=== PATIENT | male | born 1985 | race Caucasian/White ===

== ENCOUNTER 2019-11-09 11:25 | Outpatient (REF) | payer BC, SELFPAY ==
[2019-11-09 20:09] LABS: Calculated LDL 179 mg/dL (<100); Cholesterol 271 mg/dL (<200); Glucose 100 mg/dL (74-106); HDL Cholesterol 57 mg/dL (40-60); Triglyceride 178 mg/dL (<150)
== END 2019-11-09 11:45 ==
LOC: NCHCN 11:25
PROVIDERS: PCP Specialist/Technologist Athletic Trainer; Visit Provider Nurse Practitioner Family
DX: F41.1 Generalized anxiety disorder (principal); E78.5 Hyperlipidemia, unspecified; K21.9 Gastro-esophageal reflux disease without esophagitis; F90.9 Attention-deficit hyperactivity disorder, unspecified type
CPT/HCPCS: 80061; 82947

== ENCOUNTER → 2020-06-23 15:48 | Outpatient (REF) | payer BC, SELFPAY ==
[2020-06-23 20:46] LABS: ALT 61 U/L (16-63); AST 23 U/L (15-37); HDL Cholesterol 56 mg/dL (40-60); LDL CHOLESTEROL 82 mg/dL (<100)
[2020-06-23 21:09] LABS: Creatine Kinase 270 U/L (39-308)
== END ==
LOC: NCHCN 15:48
PROVIDERS: PCP Specialist/Technologist Athletic Trainer; Visit Provider Nurse Practitioner Family
DX: E78.5 Hyperlipidemia, unspecified (principal); F41.1 Generalized anxiety disorder; F32.9 Major depressive disorder, single episode, unspecified; K21.9 Gastro-esophageal reflux disease without esophagitis; F90.9 Attention-deficit hyperactivity disorder, unspecified type; R07.9 Chest pain, unspecified
CPT/HCPCS: 82550; 83721; 83718; 84450; 84460

== ENCOUNTER 2022-04-27 18:33 | Outpatient (REF) | payer BC, SELFPAY ==
[2022-04-27 20:07] LABS: ALT 72 U/L (16-63); AST 30 U/L (15-37); HDL Cholesterol 60 mg/dL (40-60); LDL CHOLESTEROL 99 mg/dL (<100)
[2022-04-27 20:20] LABS: Creatine Kinase 207 U/L (39-308)
== END 2022-04-27 18:34 | disposition home or self-care (01) ==
LOC: NCHCN 18:33
PROVIDERS: PCP Specialist/Technologist Athletic Trainer; Visit Provider Nurse Practitioner Family
DX: E78.1 Pure hyperglyceridemia (principal); F90.9 Attention-deficit hyperactivity disorder, unspecified type
CPT/HCPCS: 82550; 83721; 83718; 84450; 84460

== ENCOUNTER 2024-01-19 19:37 | Outpatient (REF) | payer BC, SELFPAY ==
[2024-01-19 20:08] LABS: ALT 70 U/L (16-63); AST 30 U/L (15-37); Albumin 4.3 g/dL (3.4-5.0); Alkaline Phosphatase 53 U/L (46-116); Anion Gap 9.6 mmol/L (3-11); BUN 20 mg/dL (7-18); Bilirubin, Total 0.37 mg/dL (0.2-1.0); CO2 27.4 mmol/L (21.0-32.0); CREATININE 1.1 mg/dL (0.70-1.30); Calcium 9.4 mg/dL (8.5-10.1); Calculated LDL 79 mg/dL (<100); Chloride 105 mmol/L (98-107); Cholesterol 184 mg/dL (<200); Estimated GFR 88.67 (mL/min/1.73m2); Glucose 94 mg/dL (74-106); HDL Cholesterol 68 mg/dL (40-60); Potassium 4.2 mmol/L (3.5-5.1); Sodium 142 mmol/L (136-145); Total Protein 7.6 g/dL (6.4-8.2); Triglyceride 188 mg/dL (<150); Vitamin D 25 Total 23.7 ng/mL (30-100)
[2024-01-25 05:36] LABS: Methylphenidate 489 ng/mL (Cutoff: 10); Ritalinic Acid 20408 ng/mL (Cutoff: 50)
== END 2024-01-19 19:38 | disposition home or self-care (01) ==
LOC: NCHCN 19:37
PROVIDERS: PCP Specialist/Technologist Athletic Trainer; Visit Provider Nurse Practitioner Family
DX: Z00.00 Encounter for general adult medical examination without abnormal findings (principal); K21.9 Gastro-esophageal reflux disease without esophagitis; F90.8 Attention-deficit hyperactivity disorder, other type; Z79.899 Other long term (current) drug therapy; Z51.81 Encounter for therapeutic drug level monitoring; Z13.1 Encounter for screening for diabetes mellitus; Z13.220 Encounter for screening for lipoid disorders
CPT/HCPCS: 80053; 80061; 80360; 82306; 83036; 83735

== ENCOUNTER 2024-12-20 19:14 | Outpatient (REF) | payer BC, SELFPAY ==
[2024-12-20 19:47] LABS: ALT 80 U/L (16-63); AST 27 U/L (15-37); Albumin 4.4 g/dL (3.4-5.0); Alkaline Phosphatase 65 U/L (46-116); Anion Gap 11.4 mmol/L (3-11); BUN 18 mg/dL (7-18); Bilirubin, Total 0.3 mg/dL (0.2-1.0); CO2 22.6 mmol/L (21.0-32.0); Calcium 9.7 mg/dL (8.5-10.1); Chloride 102 mmol/L (98-107); Estimated GFR 120.95 (mL/min/1.73m2); Glucose 102 mg/dL (74-106); Potassium 4.0 mmol/L (3.5-5.1); Sodium 136 mmol/L (136-145); Total Protein 7.8 g/dL (6.4-8.2); Vitamin D 25 Total 24 ng/mL (30-100)
== END 2024-12-20 19:15 | disposition home or self-care (01) ==
LOC: NCHCN 19:14
PROVIDERS: PCP Specialist/Technologist Athletic Trainer; Visit Provider Nurse Practitioner Family
DX: E55.9 Vitamin D deficiency, unspecified (principal); F41.9 Anxiety disorder, unspecified
CPT/HCPCS: 80053; 82306